=== PATIENT | female | born 1995 | race Two or more races ===

== ENCOUNTER 2018-08-16 09:12 | Observation (INO) | payer MEDICAID ==
[~2018-08-16] VITALS: Ht 170.2 cm; Wt 98.0 kg
[2018-08-16] MEDS ORDERED: PREN-99 PO (10:37)
== END 2018-08-16 11:47 | disposition home or self-care (01) ==
LOC: L&D 09:12 → 8 EST LDRP 10:29 → 8EST 10:50 → 8 EST LDRP 10:53
PROVIDERS: ADMIT Obstetrics & Gynecology; ATTEND Obstetrics & Gynecology
DX: O26.893 Other specified pregnancy related conditions, third trimester (principal); M54.2 Cervicalgia; R10.2 Pelvic and perineal pain; Z3A.30 30 weeks gestation of pregnancy
CPT/HCPCS: 99281; G0378

== ENCOUNTER 2019-10-06 11:45 | Emergency (ER) | payer MEDICAID ==
[~2019-10-06] VITALS: Ht 170.2 cm; Wt 100.0 kg
[~2019-10-06 11:45] MED LIST: PREN-99 PO
[2019-10-06 14:49] VITALS: BP 122/78
== END 2019-10-06 14:51 | disposition home or self-care (01) ==
LOC: ER 11:45
DX: H61.21 Impacted cerumen, right ear (principal); J06.9 Acute upper respiratory infection, unspecified
CPT/HCPCS: 99283

== ENCOUNTER 2021-01-15 10:22 | Emergency (ER) | payer MEDICAID ==
[~2021-01-15] VITALS: Ht 165.1 cm; Wt 103.0 kg
[2021-01-15] MEDS ORDERED: NAPR-681 PO (11:18)
[2021-01-15] MEDS ORDERED: NEOM10DR11 RIGHT EAR (11:18)
[2021-01-15 11:30] VITALS: BP 134/88
== END 2021-01-15 11:31 | disposition home or self-care (01) ==
LOC: ER 10:22
DX: H66.91 Otitis media, unspecified, right ear (principal); S00.401A Unspecified superficial injury of right ear, initial encounter; X58.XXXA Exposure to other specified factors, initial encounter; Y93.89 Activity, other specified; Y92.9 Unspecified place or not applicable
CPT/HCPCS: 99283